=== PATIENT | female | born 1995 | race African-American/Black ===

== ENCOUNTER 2023-12-21 20:18 | Emergency (ER) | payer OTHER ==
[~2023-12-21] VITALS: Ht 160 cm; Wt 70.9 kg
[2023-12-21] MEDS: NS 1,000 ML IV ONE (20:35)
[2023-12-21] MEDS: diazePAM 10MG/2ML SYRINGE IM ONE (20:47)
[2023-12-21 20:53] VITALS: TEMP 98.6
[2023-12-21 20:56] LABS: IONIZED CALCIUM 4.5 MG/DL (4.5-5.3)
[2023-12-21 21:12] LABS: BASO % 0.7 % (0.0-1.0); EOS # 0.2 10^3/uL (0.0-0.5); EOS % 3.7 % (0.0-3.0); HEMATOCRIT 38.3 % (36.0-47.0); HEMOGLOBIN 12.5 g/dl (12.0-15.5); LYMPH # 1.8 10^3/uL (1.5-5.0); LYMPH % 32.1 % (24.0-44.0); MEAN CORPUSCULAR HEMOGLOBIN 27.5 pg (27.0-33.0); MEAN CORPUSCULAR HGB CONC 32.6 g/dl (32.0-36.5); MEAN CORPUSCULAR VOLUME 84.4 fl (80.0-96.0); MONO # 0.4 10^3/uL (0.0-0.8); MONO % 6.4 % (2.0-8.0); NEUTROPHILS # 3.1 10^3/uL (1.5-8.5); NEUTROPHILS % 56.9 % (36.0-66.0); PLATELET COUNT, AUTOMATED 295 10^3/uL (150-450); RED BLOOD COUNT 4.54 10^6/uL (4.00-5.40); WHITE BLOOD COUNT 5.5 10^3/uL (4.0-10.0)
[2023-12-21 21:29] LABS: ALBUMIN 2.6 G/DL (3.2-5.2); BILIRUBIN,TOTAL 0.2 MG/DL (0.3-1.2); CALCIUM LEVEL 8.2 MG/DL (8.5-10.1); CREATININE FOR GFR 1.24 MG/DL (0.55-1.30); GLOMERULAR FILTRATION RATE 54.4 (>60); POTASSIUM SERUM 3.8 MMOL/L (3.5-5.1); TOTAL PROTEIN 5.7 G/DL (5.7-8.2)
[2023-12-21] MEDS: diazePAM 10MG/2ML SYRINGE IV ONE ×2 (21:35→22:52)
[2023-12-21] MEDS: busPIRone 5 MG TAB PO ONE (22:52)
[2023-12-21] MEDS: tiZANidine 4 MG TAB PO ONE (22:52)
[2023-12-21] MEDS: MAG SULF 1GM/100ML (MAG RUN) 1 GM in IV 1 EA IV ONE (23:33)
[2023-12-22 00:47] LABS: CK-MB VALUE MASS < 1.0 NG/ML (<3.6)
[2023-12-22 00:49] LABS: CPK CREATINE PHOSPHOKINASE 132 U/L (34-145); MB/CK RELATIVE INDEX 0.75 (< OR =4)
[2023-12-22 00:57] LABS: APPEARANCE, URINE CLEAR (CLEAR); BACTERIA, URINE AUTO 1+ (NEGATIVE); BILIRUBIN, URINE AUTO NEGATIVE (NEGATIVE); BLOOD, URINE BLOOD NEGATIVE (NEGATIVE); COLOR, URINE YELLOW (YELLOW); GLUCOSE, URINE (UA) AUTO NEGATIVE (NEGATIVE); KETONE, URINE AUTO NEGATIVE (NEGATIVE); LEUKOCYTE ESTERASE, URINE AUTO NEGATIVE (NEGATIVE); MUCUS, URINE SMALL (NEGATIVE); NITRITE, URINE AUTO NEGATIVE (NEGATIVE); PROTEIN, URINE AUTO NEGATIVE (NEGATIVE); RBC, URINE AUTO 0 /HPF (0-3); SPECIFIC GRAVITY URINE AUTO 1.018 (1.002-1.035); SQUAMOUS EPITHELIAL CELL UR AU 5 /HPF (0-6); UROBILINOGEN, URINE AUTO 0.2 mg/dL (0.0-2.0); WBC, URINE AUTO 0 /HPF (0-3)
[2023-12-22 04:48] VITALS: O2SAT 100
[2023-12-22] MEDS ORDERED: VALI5TAB PO (04:59)
[2023-12-22] MEDS ORDERED: BUSP5TA PO (04:59)
[2023-12-22 05:00] VITALS: BP 92/58
== END 2023-12-22 05:35 | disposition home or self-care (01) ==
LOC: M ED 20:18 → EDBD 20:18 → M ED 12-22 05:35
DX: G51.39 Clonic hemifacial spasm, unspecified (principal); G24.3 Spasmodic torticollis; Z91.013 Allergy to seafood; Z79.899 Other long term (current) drug therapy
CPT/HCPCS: 70450; 71045; 80053; 81001; 81002; 82330; 82550; 82553; 84484; 85025; 93005; 96361; 96365; 96366; 96372; 96374; 96375; 99285; J3360; J3475

== ENCOUNTER 2024-04-13 10:19 | Emergency (ER) | payer OTHER ==
[~2024-04-13] VITALS: Ht 160 cm; Wt 69.2 kg
[~2024-04-13 10:19] MED LIST: BUSP5TA PO; VALI5TAB PO
[2024-04-13] MEDS ORDERED: PANT40TA29 PO (10:38)
[2024-04-13] MEDS ORDERED: ARIP1TAB6 PO (10:38)
[2024-04-13] MEDS ORDERED: TOPA50TA8 PO (10:38)
[2024-04-13 12:11] LABS: URINE PREG TEST NEGATIVE (NEGATIVE)
[2024-04-13] MEDS ORDERED: MIRA3350 PO (13:05)
[2024-04-13] MEDS ORDERED: COLA100C5 PO (13:05)
[2024-04-13] MEDS: PANTOPRAZOLE 40MG TAB (PROTONIX) PO ONE (13:18)
[2024-04-13] MEDS: MAGNESIUM CITRATE 300ML BTL PO ONE (13:19)
[2024-04-13 13:20] VITALS: BP 116/73; TEMP 99; O2SAT 99
== END 2024-04-13 13:27 | disposition home or self-care (01) ==
LOC: M ED 10:19
DX: K59.00 Constipation, unspecified (principal); K21.9 Gastro-esophageal reflux disease without esophagitis; K58.9 Irritable bowel syndrome, unspecified; F10.10 Alcohol abuse, uncomplicated; Z91.013 Allergy to seafood; Z79.899 Other long term (current) drug therapy

== ENCOUNTER 2024-04-30 19:26 | Inpatient (IN) | payer OTHER ==
[~2024-04-30] VITALS: Ht 160 cm; Wt 68.4 kg
[~2024-04-30 19:26] MED LIST changes: +ARIP1TAB6 PO; +COLA100C5 PO; +MIRA3350 PO; +PANT40TA29 PO; +TOPA50TA8 PO
[2024-04-30] MEDS ORDERED: LIDOCAINE 2% MDV 20ML VIAL SC ONE (20:20)
[2024-04-30 20:46] LABS: HEMATOCRIT 40.3 % (36.0-47.0); HEMOGLOBIN 13.1 g/dl (12.0-15.5); MEAN CORPUSCULAR HEMOGLOBIN 28.1 pg (27.0-33.0); MEAN CORPUSCULAR HGB CONC 32.5 g/dl (32.0-36.5); MEAN CORPUSCULAR VOLUME 86.3 fl (80.0-96.0); PLATELET COUNT, AUTOMATED 251 10^3/uL (150-450); RED BLOOD COUNT 4.67 10^6/uL (4.00-5.40); WHITE BLOOD COUNT 4.7 10^3/uL (4.0-10.0)
[2024-04-30 21:07] LABS: AMPHETAMINES LEVEL URINE NEGATIVE (NEGATIVE); BARBITURATES URINE NEGATIVE (NEGATIVE); BENZODIAZEPINES URINE NEGATIVE (NEGATIVE); CANNABINOIDS URINE NEGATIVE (NEGATIVE); COCAINE METABOLITE URINE NEGATIVE (NEGATIVE); METHADONE URINE NEGATIVE (NEGATIVE); OPIATES URINE NEGATIVE (NEGATIVE); PHENCYCLIDINE URINE NEGATIVE (NEGATIVE)
[2024-04-30 21:09] LABS: ETHYL ALCOHOL (ETHANOL) < 0.003 % (0.000-0.010); HCG, SERUM QUANTITATIVE 8.4 MIU/ML (<4.2)
[2024-04-30 21:11] LABS: ALBUMIN 2.5 G/DL (3.2-5.2); ALKALINE PHOSPHATASE 73 U/L (35-104); ALT/SGPT 17 U/L (7.0-40); AST/SGOT 18 U/L (<34); BILIRUBIN,DIRECT < 0.1 MG/DL (<0.4); BILIRUBIN,TOTAL 0.3 MG/DL (0.3-1.2); BLOOD UREA NITROGEN 13 MG/DL (9-23); CALCIUM LEVEL 8.6 MG/DL (8.5-10.1); CARBON DIOXIDE LEVEL 28 MMOL/L (20-31); CHLORIDE LEVEL 107 MMOL/L (98-107); CPK CREATINE PHOSPHOKINASE 111 U/L (34-145); CREATININE FOR GFR 1.04 MG/DL (0.55-1.30); GLOMERULAR FILTRATION RATE > 60.0 (>60); GLUCOSE, FASTING 90 MG/DL (60-100); POTASSIUM SERUM 3.9 MMOL/L (3.5-5.1); SALICYLATE LEVEL < 3.0 MG/DL (<30); SODIUM LEVEL 141 MMOL/L (136-145); TOTAL PROTEIN 5.6 G/DL (5.7-8.2)
[2024-04-30 21:13] LABS: THYROID STIMULATING HORMONE 3.322 uIU/ML (0.55-4.78)
[2024-04-30] MEDS ORDERED: IBUP200C25 PO (21:59)
[2024-04-30] MEDS ORDERED: ACET-897 PO (21:59)
[2024-04-30] MEDS ORDERED: HOME MED LIST COMPLETE! XX SCH (22:00)
[2024-04-30] MEDS ORDERED: diphenhydrAMINE 25MG CAP PO PRN (23:35)
[2024-04-30] MEDS ORDERED: MAALOX 30 ML SUSP *UDC PO PRN (23:35)
[2024-04-30] MEDS ORDERED: traZODone 50 MG TAB PO PRN (23:35)
[2024-04-30] MEDS ORDERED: MOM 30ML SUSPENSION UDC PO PRN (23:35)
[2024-04-30] MEDS: IBUPROFEN 400MG TAB PO PRN (23:54)
[2024-05-01 06:46] VITALS: BP 104/59; TEMP 98.4; O2SAT 100
[2024-05-01] MEDS: NICOTINE 14 MG/24 HR TRANSDERMAL TD SCH (09:00)
[2024-05-01] MEDS: TOPIRAMATE (TopAMAX) 25 MG TAB PO SCH (10:05)
[2024-05-01] MEDS: ACETAMINOPHEN 325 MG TAB PO PRN (10:10)
[2024-05-01 17:05] VITALS: BP 113/65; TEMP 97.7; O2SAT 100
[2024-05-02 06:31] VITALS: BP 109/65; TEMP 98.4; O2SAT 99
[2024-05-02 15:00] VITALS: BP 106/69; TEMP 98.3; O2SAT 100
[2024-05-02] MEDS: DULoxetine 20MG CAP (CYMBALTA) PO SCH (15:30)
[2024-05-03 06:35] VITALS: BP 115/68; TEMP 98.4; O2SAT 100
[2024-05-03 15:47] VITALS: BP 144/84; TEMP 98.1; O2SAT 99
[2024-05-04 06:48] VITALS: BP 117/68; TEMP 98.4; O2SAT 98
[2024-05-04] MEDS ORDERED: ABIL1TAB11 PO (11:43)
[2024-05-04] MEDS ORDERED: TOPA1TAB PO (11:43)
[2024-05-04] MEDS ORDERED: DULO1CAP4 PO (11:43)
== END 2024-05-04 13:12 | disposition home or self-care (01) | DRG 881 ==
LOC: M ED 19:26 → M ED INP 23:31 → M PSY 05-01 01:06
PROVIDERS: ADMIT Psychiatry & Neurology Neurology; ATTEND Psychiatry & Neurology Psychiatry
DX: F32.A Depression, unspecified (principal); F43.10 Post-traumatic stress disorder, unspecified; F41.1 Generalized anxiety disorder; E73.9 Lactose intolerance, unspecified; I73.00 Raynaud's syndrome without gangrene; D50.9 Iron deficiency anemia, unspecified; Z62.810 Personal history of physical and sexual abuse in childhood; Z79.899 Other long term (current) drug therapy; Z91.030 Bee allergy status

== ENCOUNTER → 2024-06-07 | Outpatient (REF) | payer OTHER ==
[~2024-06-07] MED LIST changes: +ABIL1TAB11 PO; +ACET-897 PO; +DULO1CAP4 PO; +IBUP200C25 PO; +TOPA1TAB PO
[2024-06-07 14:02] LABS: EOS # 0.1 10^3/uL (0.0-0.5); EOS % 2.9 % (0.0-3.0); HEMATOCRIT 41.2 % (36.0-47.0); LYMPH # 1.4 10^3/uL (1.5-5.0); LYMPH % 35.9 % (24.0-44.0); MEAN CORPUSCULAR HEMOGLOBIN 26.9 pg (27.0-33.0); MEAN CORPUSCULAR HGB CONC 31.6 g/dl (32.0-36.5); MEAN CORPUSCULAR VOLUME 85.3 fl (80.0-96.0); MONO # 0.3 10^3/uL (0.0-0.8); MONO % 7.6 % (2.0-8.0); NEUTROPHILS % 52.3 % (36.0-66.0); PLATELET COUNT, AUTOMATED 291 10^3/uL (150-450); RED BLOOD COUNT 4.83 10^6/uL (4.00-5.40); WHITE BLOOD COUNT 3.8 10^3/uL (4.0-10.0)
[2024-06-07 14:04] LABS: APPEARANCE, URINE HAZY (CLEAR); BACTERIA, URINE AUTO NEGATIVE (NEGATIVE); BILIRUBIN, URINE AUTO NEGATIVE (NEGATIVE); BLOOD, URINE BLOOD 2+ (NEGATIVE); COLOR, URINE YELLOW (YELLOW); GLUCOSE, URINE (UA) AUTO NEGATIVE (NEGATIVE); KETONE, URINE AUTO NEGATIVE (NEGATIVE); LEUKOCYTE ESTERASE, URINE AUTO NEGATIVE (NEGATIVE); MUCUS, URINE SMALL (NEGATIVE); NITRITE, URINE AUTO NEGATIVE (NEGATIVE); PROTEIN, URINE AUTO NEGATIVE (NEGATIVE); RBC, URINE AUTO 0 /HPF (0-3); SPECIFIC GRAVITY URINE AUTO 1.023 (1.002-1.035); SQUAMOUS EPITHELIAL CELL UR AU 13 /HPF (0-6); UROBILINOGEN, URINE AUTO 0.2 mg/dL (0.0-2.0); WBC, URINE AUTO 1 /HPF (0-3)
[2024-06-07 14:07] LABS: ERYTHROCYTE SEDIMENTATION RATE 23 mm/hr (0-20)
[2024-06-07 15:02] LABS: TOTAL PROTEIN,RANDOM URINE 14.4 MG/DL (0.0-14.0)
[2024-06-07 19:33] LABS: ALBUMIN 2.6 G/DL (3.2-5.2); ALKALINE PHOSPHATASE 80 U/L (35-104); ALT/SGPT 23 U/L (7.0-40); AST/SGOT 20 U/L (<34); BILIRUBIN,TOTAL 0.4 MG/DL (0.3-1.2); BLOOD UREA NITROGEN 13 MG/DL (9-23); C REACTIVE PROTEIN QUANTITATIV < 0.50 MG/DL (<1.0); CALCIUM LEVEL 8.6 MG/DL (8.5-10.1); CARBON DIOXIDE LEVEL 28 MMOL/L (20-31); CHLORIDE LEVEL 107 MMOL/L (98-107); CREATININE FOR GFR 1.03 MG/DL (0.55-1.30); GLOMERULAR FILTRATION RATE > 60.0 (>60); GLUCOSE, FASTING 87 MG/DL (60-100); POTASSIUM SERUM 4.5 MMOL/L (3.5-5.1); SODIUM LEVEL 140 MMOL/L (136-145); TOTAL PROTEIN 5.8 G/DL (5.7-8.2)
[2024-06-07 19:34] LABS: COMPLEMENT C3 150.3 MG/DL (84.0-160.0); COMPLEMENT C4 33.9 MG/DL (12-36)
[2024-06-10 17:28] LABS: COMPLEMENT TOTAL (CH50) 50 U/mL (31-60)
[2024-06-12 03:58] LABS: Hexagonal Phase Phospholipid Negative (Negative)
[2024-06-12 04:01] LABS: PTT-LA 41 sec (<=40); dRVVT 29 sec (<=45)
== END ==
LOC: M SFHCRHEU 08:05
PROVIDERS: ATTEND Internal Medicine Rheumatology
DX: R76.8 Other specified abnormal immunological findings in serum (principal); M25.50 Pain in unspecified joint; R68.89 Other general symptoms and signs; I73.00 Raynaud's syndrome without gangrene

== ENCOUNTER → 2024-07-12 | Outpatient (CLI) | payer OTHER | LOC: M RAD 15:06 | PROVIDERS: ATTEND Internal Medicine Rheumatology | DX: R76.8 Other specified abnormal immunological findings in serum (principal); R68.89 Other general symptoms and signs; I73.00 Raynaud's syndrome without gangrene; Z87.59 Personal history of other complications of pregnancy, childbirth and the puerperium ==